=== PATIENT | female | born 1960 | race Caucasian/White ===

== ENCOUNTER 2017-09-09 14:33 | Emergency (ER) | payer OTHER ==
[~2017-09-09] VITALS: Ht 167.6 cm; Wt 65.9 kg
[2017-09-09 14:37] VITALS: BP 110/83
[2017-09-09] MEDS ORDERED: CORT1SOL3 AS (15:00)
[2017-09-09] MEDS ORDERED: IBUP-1022 PO (15:01)
== END 2017-09-09 15:24 | disposition home or self-care (01) ==
LOC: M ED 15:12
DX: H60.92 Unspecified otitis externa, left ear (principal); Z87.891 Personal history of nicotine dependence

== ENCOUNTER → 2017-10-18 | Outpatient (CLI) | payer OTHER ==
[~2017-10-18] MED LIST: CORT1SOL3 AS; IBUP-1022 PO
--- NOTE | 2017-10-28 08:36 | REPMRS ---
Patient History The patient states she has not had a clinical breast exam in over a year. Patient is postmenopausal and is nulliparous. No known family history of cancer. File area calling for out of town priors Digital Mammo Screening Bilat: October 18, 2017 - Exam #: [id number] Bilateral CC and MLO view(s) were taken. Technologist: Sylvie Welch, Technologist No prior studies available for comparison. FINDINGS: There are scattered fibroglandular densities. There is no evidence of dominant mass, architectural distortion, or clustered microcalcification typical of malignancy. ASSESSMENT: BI-RADS/ACR category 1 mammogram. Negative. Recommendation Routine screening mammogram of both breasts in 1 year (for women over age 40). This mammogram was interpreted with the aid of an FDA-approved computer-aided dectection system. Electronically Signed By: Maximo Christopher MD 10/28/17 0817
== END ==
LOC: M RAD 13:11
PROVIDERS: ATTEND Family Medicine Addiction Medicine
DX: Z12.31 Encounter for screening mammogram for malignant neoplasm of breast (principal)

== ENCOUNTER → 2017-11-01 | Outpatient (REF) | payer OTHER | LOC: M LAB REF 17:48 | PROVIDERS: ATTEND Family Medicine Addiction Medicine | DX: Z12.4 Encounter for screening for malignant neoplasm of cervix (principal) ==

== ENCOUNTER → 2017-11-04 | Outpatient (REF) | payer OTHER ==
[2017-11-04 15:42] LABS: ALBUMIN/GLOBULIN RATIO 1.08 (1.00-1.93); ALKALINE PHOSPHATASE 78 U/L (45-117); ALT/SGPT 23 U/L (12-78); ANION GAP 4 MEQ/L (8-16); AST/SGOT 19 U/L (7-37); BILIRUBIN,TOTAL 0.7 MG/DL (0.2-1.0); BLOOD UREA NITROGEN 15 MG/DL (7-18); CARBON DIOXIDE LEVEL 31 MEQ/L (21-32); CHLORIDE LEVEL 104 MEQ/L (98-107); CHOLESTEROL LEVEL 225 MG/DL (<200); CREATININE FOR GFR 0.72 MG/DL (0.55-1.02); GLOMERULAR FILTRATION RATE > 60.0 (>51); GLUCOSE, FASTING 97 MG/DL (70-105); POTASSIUM SERUM 4.4 MEQ/L (3.5-5.1); SODIUM LEVEL 139 MEQ/L (136-145); TOTAL PROTEIN 7.7 GM/DL (6.4-8.2); TRIGLYCERIDES LEVEL 80 MG/DL (<150)
== END ==
LOC: M LAB REF 15:02
PROVIDERS: ATTEND Family Medicine Addiction Medicine
DX: Z00.01 Encounter for general adult medical examination with abnormal findings (principal)

== ENCOUNTER → 2018-11-18 | Outpatient (CLI) | payer OTHER ==
--- NOTE | 2018-11-18 10:59 | REPMRS ---
Patient History The patient states she has not had a clinical breast exam in over a year. No known family history of cancer. Digital Mammo Screening Bilat: November 18, 2018 - Exam #: [id number] Bilateral CC and MLO view(s) were taken. Technologist: Zoila Hugo, Technologist Prior study comparison: October 18, 2017, bilateral digital mammo screening bilat performed at [facility]. July 29, 2014, bilateral digital woman screen mammo, performed at [facility]. October 04, 2011, bilateral digital woman screen mammo, performed at [facility]. FINDINGS: There are scattered fibroglandular densities. There has been no change in the appearance of the mammogram from the prior studies. There is a mild amount of scattered fibroglandular density which is fairly symmetric. There is no interval development of dominant mass, architectural distortion, or clustered microcalcification suggestive of malignancy. 3-D tomosynthesis shows no additional findings. Assessment: BI-RADS/ACR category 1 mammogram. Negative. Recommendation Routine screening mammogram of both breasts in 1 year (for women over age 40). This patient's Lifetime Breast Cancer RIsk is estimated at 11.3 %. This mammogram was interpreted with the aid of an FDA-approved computer-aided dectection system. Electronically Signed By: Maximo Christopher MD 11/18/18 1699
== END ==
LOC: M RAD 09:48
PROVIDERS: ATTEND Family Medicine Addiction Medicine
DX: Z12.31 Encounter for screening mammogram for malignant neoplasm of breast (principal)

== ENCOUNTER → 2019-05-20 | Outpatient (REF) | payer OTHER ==
[2019-05-20 13:53] LABS: ALBUMIN 3.8 GM/DL (3.2-5.2); ALT/SGPT 32 U/L (12-78); BILIRUBIN,TOTAL 0.4 MG/DL (0.2-1.0); BLOOD UREA NITROGEN 23 MG/DL (7-18); CALCIUM LEVEL 9.5 MG/DL (8.5-10.1); CARBON DIOXIDE LEVEL 29 MEQ/L (21-32); CHLORIDE LEVEL 107 MEQ/L (98-107); CHOLESTEROL LEVEL 225 MG/DL (<200); CREATININE FOR GFR 0.65 MG/DL (0.55-1.30); GLOMERULAR FILTRATION RATE > 60.0 (>51); GLUCOSE, FASTING 100 MG/DL (70-100); HDL CHOLESTEROL 69 MG/DL (>40); LDL CHOLESTEROL 130 MG/DL (<100); NON-HDL-C 156 MG/DL; POTASSIUM SERUM 4.5 MEQ/L (3.5-5.1); SODIUM LEVEL 141 MEQ/L (136-145); TOTAL PROTEIN 7.5 GM/DL (6.4-8.2); TRIGLYCERIDES LEVEL 130 MG/DL (<150)
== END ==
LOC: M LAB REF 13:01
PROVIDERS: ATTEND Family Medicine Addiction Medicine
DX: Z12.4 Encounter for screening for malignant neoplasm of cervix (principal)

== ENCOUNTER → 2019-09-29 | Outpatient (REF) | payer OTHER ==
[2019-09-29 14:10] LABS: ALBUMIN 3.7 GM/DL (3.2-5.2); ALT/SGPT 29 U/L (12-78); BILIRUBIN,TOTAL 0.5 MG/DL (0.2-1.0); BLOOD UREA NITROGEN 18 MG/DL (7-18); CALCIUM LEVEL 9.3 MG/DL (8.8-10.2); CARBON DIOXIDE LEVEL 30 MEQ/L (21-32); CHLORIDE LEVEL 108 MEQ/L (98-107); CHOLESTEROL LEVEL 222 MG/DL (<200); CHOLESTEROL RISK RATIO 2.846 (<5); CREATININE FOR GFR 0.72 MG/DL (0.55-1.30); GLOMERULAR FILTRATION RATE > 60.0 (>45); GLUCOSE, FASTING 106 MG/DL (70-100); HDL CHOLESTEROL 78 MG/DL (>40); LDL CHOLESTEROL 121 MG/DL (<100); NON-HDL-C 144 MG/DL; POTASSIUM SERUM 4.7 MEQ/L (3.5-5.1); SODIUM LEVEL 140 MEQ/L (136-145); TOTAL PROTEIN 7.2 GM/DL (6.4-8.2); TRIGLYCERIDES LEVEL 117 MG/DL (<150)
== END ==
LOC: M LAB REF 12:28
PROVIDERS: ATTEND Nurse Practitioner Family
DX: Z00.01 Encounter for general adult medical examination with abnormal findings (principal)

== ENCOUNTER → 2019-11-23 | Outpatient (CLI) | payer OTHER ==
--- NOTE | 2019-11-23 10:52 | REPMRS ---
Patient History The patient states she had a clinical breast exam in September 2019. No known family history of cancer. 3D TOMOSYNTHESIS WAS PERFORMED. The [facility] lifetime risk for breast cancer is 10.9%. Digital Mammo Screening Bilat: November 23, 2019 - Exam #: [id number] Bilateral CC and MLO view(s) were taken. Technologist: Sylvie Welch, Technologist Prior study comparison: November 18, 2018, bilateral digital mammo screening bilat performed at [facility]. October 18, 2017, bilateral digital mammo screening bilat performed at [facility]. FINDINGS: There are scattered fibroglandular densities. There has been no change in the appearance of the mammogram from the prior studies. There is a mild amount of residual fibroglandular tissue which is fairly symmetric. There is no interval development of dominant mass, architectural distortion, or clustered microcalcification suggestive of malignancy. Assessment: BI-RADS/ACR category 1 mammogram. Negative Mammogram. Recommendation Routine screening mammogram in 1 year (for women over age 40). This mammogram was interpreted with the aid of an FDA-approved computer-aided dectection system. Electronically Signed By: Abhijit Livingston MD 11/23/19 1762
== END ==
LOC: M RAD 10:08
PROVIDERS: ATTEND Nurse Practitioner Family
DX: Z12.31 Encounter for screening mammogram for malignant neoplasm of breast (principal)

== ENCOUNTER 2019-12-04 07:40 | Day surgery (SDC) | payer OTHER ==
[~2019-12-04] VITALS: Ht 167.6 cm; Wt 81.2 kg
[~2019-12-04 07:40] MED LIST changes: +LIDOCAINE 2% INJ 100 MG/5 ML SDV (FOR ANES.) As Ordered ONE; +MULTCAP PO; +NS 1,000 ML IV ONE; +PROPOFOL 200 MG/20 ML VIAL As Ordered ONE
[2019-12-04] MEDS ORDERED: PROPOFOL 200 MG/20 ML VIAL As Ordered ONE (09:29)
--- NOTE | 2019-12-04 09:37 | ROOR ---
Patient Name: Bharti Marsh Procedure Date: 12/04/2019 8:54 AM Date of : 1960 Age: 59 Room: [facility] Gender: Female Note Status: Finalized Procedure: Colonoscopy Indications: Screening for colorectal malignant neoplasm Providers: Cesar Bill MD Referring MD: Lenore Ro Requesting Provider: Medicines: Monitored Anesthesia Care Complications: No immediate complications. Procedure: Pre-Anesthesia Assessment: - Prior to the procedure, a History and Physical was performed, and patient medications and allergies were reviewed. The patient is competent. The risks and benefits of the procedure and the sedation options and risks were discussed with the patient. All questions were answered and informed consent was obtained. Patient identification and proposed procedure were verified by the physician, the nurse and the anesthesiologist in the procedure room. Mental Status Examination: alert and oriented. Airway Examination: normal oropharyngeal airway and neck mobility. Respiratory Examination: clear to auscultation. CV Examination: normal. Prophylactic Antibiotics: The patient does not require prophylactic antibiotics. Prior Anticoagulants: The patient has taken no previous anticoagulant or antiplatelet agents. ASA Grade Assessment: II - A patient with mild systemic disease. After reviewing the risks and benefits, the patient was deemed in satisfactory condition to undergo the procedure. The anesthesia plan was to use monitored anesthesia care (MAC). Immediately prior to administration of medications, the patient was re-assessed for adequacy to receive sedatives. The heart rate, respiratory rate, oxygen saturations, blood pressure, adequacy of pulmonary ventilation, and response to care were monitored throughout the procedure. The physical status of the patient was re-assessed after the procedure. The Colonoscope was introduced through the anus and advanced to the terminal ileum, with identification of the appendiceal orifice and IC valve. The colonoscopy was performed without difficulty. The patient tolerated the procedure well. The quality of the bowel preparation was good. The terminal ileum, ileocecal valve, appendiceal orifice, and rectum were photographed. Scope insertion time was 5 minutes. Scope withdrawal time was 11 minutes. The total duration of the procedure was 16 minutes. Findings: The perianal and digital rectal examinations were normal. The terminal ileum appeared normal. Three sessile polyps were found in the sigmoid colon and ascending colon. The polyps were 5 to 6 mm in size. These polyps were removed with a cold snare. Resection and retrieval were complete. Verification of patient identification for the specimen was done by the physician and nurse using the patient's name, date and medical record number. Estimated blood loss was minimal. Multiple small and large-mouthed diverticula were found from sigmoid to descending colon. There was no evidence of diverticular bleeding. Non-bleeding external and internal hemorrhoids were found during retroflexion. The hemorrhoids were medium-sized. Impression: - The examined portion of the ileum was normal. - Three 5 to 6 mm polyps in the sigmoid colon and in the ascending colon, removed with a cold snare. Resected and retrieved. - Moderate diverticulosis from sigmoid to descending colon. There was no evidence of diverticular bleeding. - Non-bleeding external and internal hemorrhoids. Recommendation: - Patient has a contact number available for emergencies. The signs and symptoms of potential delayed complications were discussed with the patient. Return to normal activities tomorrow. Written discharge instructions were provided to the patient. - High fiber diet. - Continue present medications. - Await pathology results. - Telephone GI clinic for pathology results in 2 weeks. - Repeat colonoscopy in 3 - 5 years for surveillance based on pathology results. - Return to primary care physician. Cesar Bill MD Cesar Bill MD 12/04/2019 9:37:32 AM Electronically signed by Cesar Bill MD Number of Addenda: 0 Note Initiated On: 12/04/2019 8:54 AM Estimated Blood Loss: Estimated blood loss was minimal.
[2019-12-04 09:57] VITALS: BP 176/98
== END 2019-12-04 09:59 | disposition home or self-care (01) ==
LOC: M OPP 07:40
PROVIDERS: ATTEND Internal Medicine Gastroenterology
DX: Z12.11 Encounter for screening for malignant neoplasm of colon (principal); K64.8 Other hemorrhoids; D12.5 Benign neoplasm of sigmoid colon; D12.2 Benign neoplasm of ascending colon; K57.30 Diverticulosis of large intestine without perforation or abscess without bleeding

== ENCOUNTER → 2020-11-30 | Outpatient (CLI) | payer OTHER ==
[~2020-11-30] MED LIST changes: -LIDOCAINE 2% INJ 100 MG/5 ML SDV (FOR ANES.) As Ordered ONE; -NS 1,000 ML IV ONE; -PROPOFOL 200 MG/20 ML VIAL As Ordered ONE
--- NOTE | 2020-11-30 14:58 | REPMRS ---
Patient History The patient states she has not had a clinical breast exam in over a year. Patient is postmenopausal and is nulliparous. No known family history of cancer. Digital Woman Screen Mammo: November 30, 2020 - Exam #: [id number] Bilateral MLO, CC, and XCCL view(s) were taken. Technologist: Rossy Shearer, Technologist Prior study comparison: November 23, 2019, bilateral digital mammo screening bilat, performed at [facility]. November 18, 2018, bilateral digital mammo screening bilat, performed at [facility]. October 18, 2017, bilateral digital mammo screening bilat, performed at [facility]. FINDINGS: There are scattered fibroglandular densities. The Volpara volumetric breast density category is:B. There has been no change in the appearance of the mammogram from the prior studies. There is a mild amount of scattered fibroglandular density which is fairly symmetric. There is no interval development of dominant mass, architectural distortion, or grouped microcalcification suggestive of malignancy. 3-D tomosynthesis shows no additional findings. Assessment: BI-RADS/ACR category 1 mammogram. Negative Mammogram. Recommendation Routine screening mammogram of both breasts in 1 year (for women over age 40). This patient's [facility] Lifetime Breast Cancer Risk is estimated at 10.6 %. This mammogram was interpreted with the aid of an FDA-approved computer-aided dectection system. Electronically Signed By: Maximo Christopher MD 11/30/20 1605
== END ==
LOC: M WHC 14:17
PROVIDERS: ATTEND Nurse Practitioner Family
DX: Z12.31 Encounter for screening mammogram for malignant neoplasm of breast (principal)

== ENCOUNTER → 2021-03-27 | Outpatient (REF) | payer OTHER ==
[2021-03-27 13:59] LABS: ALBUMIN 4.1 GM/DL (3.2-5.2); ALT/SGPT 37 U/L (12-78); BILIRUBIN,TOTAL 0.7 MG/DL (0.2-1.0); BLOOD UREA NITROGEN 15 MG/DL (7-18); CALCIUM LEVEL 9.2 MG/DL (8.8-10.2); CARBON DIOXIDE LEVEL 30 MEQ/L (21-32); CHLORIDE LEVEL 105 MEQ/L (98-107); CHOLESTEROL LEVEL 243 MG/DL (<200); CHOLESTEROL RISK RATIO 2.761 (<5); CREATININE FOR GFR 0.51 MG/DL (0.55-1.30); GLOMERULAR FILTRATION RATE > 60.0 (>45); GLUCOSE, FASTING 92 MG/DL (70-100); HDL CHOLESTEROL 88 MG/DL (>40); LDL CHOLESTEROL 135 MG/DL (<100); NON-HDL-C 155 MG/DL; POTASSIUM SERUM 4.9 MEQ/L (3.5-5.1); SODIUM LEVEL 140 MEQ/L (136-145); TOTAL PROTEIN 7.6 GM/DL (6.4-8.2); TRIGLYCERIDES LEVEL 98 MG/DL (<150)
== END ==
LOC: M LAB REF 12:04
PROVIDERS: ATTEND Family Medicine Addiction Medicine
DX: E78.5 Hyperlipidemia, unspecified (principal)

== ENCOUNTER → 2021-04-20 | Outpatient (REF) | payer OTHER ==
[~2021-04-20] MED LIST changes: +CEPH500C PO
== END ==
LOC: M LAB REF 17:07
PROVIDERS: ATTEND Orthopaedic Surgery
DX: M67.432 Ganglion, left wrist (principal)

== ENCOUNTER 2021-04-22 10:54 | Emergency (ER) | payer OTHER ==
[~2021-04-22] VITALS: Ht 167.6 cm; Wt 75.9 kg
[~2021-04-22 10:54] MED LIST changes: -CEPH500C PO
[2021-04-22] MEDS ORDERED: CEPH500C PO (12:35)
[2021-04-22 13:02] VITALS: BP 128/60
== END 2021-04-22 13:17 | disposition home or self-care (01) ==
LOC: M ED 10:54
DX: L76.34 Postprocedural seroma of skin and subcutaneous tissue following other procedure (principal)

== ENCOUNTER → 2022-08-12 | Outpatient (CLI) | payer OTHER ==
[~2022-08-12] MED LIST changes: +CEPH500C PO
== END ==
LOC: M LABSMTC 09:30
PROVIDERS: ATTEND Anesthesiology
DX: Z01.818 Encounter for other preprocedural examination (principal); Z11.52 Encounter for screening for COVID-19

== ENCOUNTER 2022-08-15 08:41 | Day surgery (SDC) | payer OTHER ==
[~2022-08-15] VITALS: Ht 167.6 cm; Wt 68.0 kg
[~2022-08-15 08:41] MED LIST changes: +ceFAZolin SOD 2 GM in IV 1 EA IV ONE
[2022-08-15] MEDS ORDERED: LIDOCAINE 2% 100MG/5ML SDV (FOR ANES.) As Ordered ONE (08:55)
[2022-08-15] MEDS ORDERED: propofoL 200 MG/20 ML VIAL As Ordered ONE (08:55)
[2022-08-15] MEDS ORDERED: fentaNYL 100 MCG/2 ML INJECTION As Ordered ONE (08:56)
[2022-08-15] MEDS ORDERED: MIDAZOLAM INJ 2MG/2ML VIAL (J2250 PER 1MG) As Ordered ONE (08:56)
[2022-08-15] MEDS ORDERED: oxyCODONE 5MG TAB PO PRN (09:15)
[2022-08-15] MEDS ORDERED: ONDANSETRON 4MG 2ML VIAL IV PRN (09:15)
[2022-08-15] MEDS ORDERED: fentaNYL 100 MCG/2 ML INJECTION IV PRN (09:15)
[2022-08-15] MEDS ORDERED: LR 1,000 ML IV SCH ×2 (09:15→09:30)
[2022-08-15] MEDS ORDERED: LIDOCAINE 1% SDV 30ML VIAL As Ordered ONE (09:37)
[2022-08-15] MEDS ORDERED: dexameTHASONE 4 MG/ML 1ML VIAL (J1100 PER 1MG) As Ordered ONE ×2 (09:37→10:06)
[2022-08-15] MEDS ORDERED: BUPIVACAINE HCL 0.5% 30ML VIAL As Ordered ONE (09:38)
[2022-08-15] MEDS ORDERED: ONDANSETRON 4MG 2ML VIAL As Ordered ONE (10:07)
[2022-08-15] MEDS ORDERED: ePHEDrine SULFATE 25 MG/5 ML(5MG/ML) SYRINGE As Ordered ONE (11:03)
[2022-08-15] MEDS ORDERED: ACETAMINOPHEN 1000MG 100ML IV BTL (OFIRMEV) (J0131 PER 10MG) As Ordered ONE (11:26)
[2022-08-15 13:45] VITALS: BP 136/90
== END 2022-08-15 13:50 | disposition home or self-care (01) ==
LOC: M SDC 08:41
PROVIDERS: ATTEND Podiatrist Foot & Ankle Surgery
DX: M20.12 Hallux valgus (acquired), left foot (principal); M20.42 Other hammer toe(s) (acquired), left foot; Z87.891 Personal history of nicotine dependence
CPT/HCPCS: 28234; 28285; 28299; 88300; 97116; C1713; J0131; J0690; J1100; J2250; J2405; J3010

== ENCOUNTER → 2023-12-30 | Outpatient (CLI) | payer OTHER ==
[~2023-12-30] MED LIST changes: -ceFAZolin SOD 2 GM in IV 1 EA IV ONE
[2023-12-30 17:32] LABS: ALBUMIN 3.8 G/DL (3.2-5.2); ALKALINE PHOSPHATASE 83 U/L (46-116); ALT/SGPT 24 U/L (7.0-40); AST/SGOT 26 U/L (<34); BLOOD UREA NITROGEN 11 MG/DL (9-23); CALCIUM LEVEL 9.3 MG/DL (8.3-10.6); CARBON DIOXIDE LEVEL 29 MMOL/L (20-31); CHLORIDE LEVEL 102 MMOL/L (98-107); CHOLESTEROL LEVEL 244 MG/DL (<200); CHOLESTEROL RISK RATIO 2.54 (<5); CREATININE FOR GFR 0.47 MG/DL (0.55-1.30); GLOMERULAR FILTRATION RATE > 60.0 (>45); GLUCOSE, FASTING 76 MG/DL (74-106); HDL CHOLESTEROL 95.7 MG/DL (>40); LDL CHOLESTEROL 136.1 MG/DL (<100); MAGNESIUM LEVEL 2.1 MG/DL (1.8-2.4); NON-HDL-C 148.3 MG/DL; POTASSIUM SERUM 4.2 MMOL/L (3.5-5.1); SODIUM LEVEL 138 MMOL/L (136-145); THYROID STIMULATING HORMONE 1.619 uIU/ML (0.55-4.78); TOTAL 25(OH) VITAMIN D 51.8 NG/ML (20.0-100.0); TOTAL PROTEIN 7.2 G/DL (5.7-8.2); TRIGLYCERIDES LEVEL 61 MG/DL (<150)
[2023-12-30 17:51] LABS: BASO % 0.7 % (0.0-1.0); EOS # 0.1 10^3/uL (0.0-0.5); HEMATOCRIT 41.2 % (36.0-47.0); HEMOGLOBIN 13.3 g/dl (12.0-15.5); LYMPH # 1.8 10^3/uL (1.5-5.0); MEAN CORPUSCULAR HEMOGLOBIN 32.7 pg (27.0-33.0); MEAN CORPUSCULAR HGB CONC 32.3 g/dl (32.0-36.5); MEAN CORPUSCULAR VOLUME 101.2 fl (80.0-96.0); MONO # 0.4 10^3/uL (0.0-0.8); MONO % 6.6 % (2.0-8.0); NEUTROPHILS # 3.7 10^3/uL (1.5-8.5); NEUTROPHILS % 60.5 % (36.0-66.0); PLATELET COUNT, AUTOMATED 369 10^3/uL (150-450); RED BLOOD COUNT 4.07 10^6/uL (4.00-5.40); WHITE BLOOD COUNT 6.1 10^3/uL (4.0-10.0)
[2023-12-30 19:09] LABS: HEMOGLOBIN A1c 5.2 % (4.0-6.0)
== END ==
LOC: M RAD 15:47
PROVIDERS: ATTEND Nurse Practitioner Family
DX: M25.561 Pain in right knee (principal); E66.3 Overweight; E55.9 Vitamin D deficiency, unspecified; M17.0 Bilateral primary osteoarthritis of knee

== ENCOUNTER 2024-03-04 10:04 | Day surgery (SDC) | payer OTHER ==
[~2024-03-04] VITALS: Ht 167.6 cm; Wt 76.1 kg
[~2024-03-04 10:04] MED LIST changes: +THERTAB52 PO; +VITA-243 PO
[2024-03-04] MEDS: NS 1,000 ML IV ONE (11:13)
[2024-03-04 11:14] VITALS: TEMP 97.8
[2024-03-04] MEDS ORDERED: propofoL 200 MG/20 ML VIAL As Ordered ONE (12:19)
[2024-03-04 13:00] VITALS: BP 125/79; O2SAT 96
== END 2024-03-04 13:27 | disposition home or self-care (01) ==
LOC: M OPP 10:04
PROVIDERS: ATTEND Surgery
DX: Z12.11 Encounter for screening for malignant neoplasm of colon (principal); Z86.010 Personal history of colon polyps; K57.30 Diverticulosis of large intestine without perforation or abscess without bleeding; Z87.891 Personal history of nicotine dependence

== ENCOUNTER → 2024-06-02 | Outpatient (CLI) | payer OTHER | LOC: M RAD 17:41 | PROVIDERS: ATTEND Nurse Practitioner Family | DX: M19.041 Primary osteoarthritis, right hand (principal) ==

== ENCOUNTER 2024-10-27 17:05 | Emergency (ER) | payer MEDICARE, OTHER ==
[~2024-10-27] VITALS: Ht 167.6 cm; Wt 79.0 kg
[2024-10-27 17:08] VITALS: TEMP 97.5
[2024-10-27] MEDS ORDERED: NAPR-837 PO (20:04)
[2024-10-27] MEDS: predniSONE 20 MG TAB PO ONE (20:18)
[2024-10-27 20:20] VITALS: BP 147/89; O2SAT 98
== END 2024-10-27 20:22 | disposition home or self-care (01) ==
LOC: M ED 17:05
DX: M54.32 Sciatica, left side (principal); Z79.899 Other long term (current) drug therapy
CPT/HCPCS: 99283; J7512

== ENCOUNTER → 2024-11-23 | Outpatient (CLI) | payer MEDICARE, OTHER ==
[~2024-11-23] MED LIST changes: +NAPR-837 PO
== END ==
LOC: M RAD 17:11
PROVIDERS: ATTEND Physician Assistant
DX: M53.3 Sacrococcygeal disorders, not elsewhere classified (principal); M47.9 Spondylosis, unspecified

== ENCOUNTER → 2024-12-31 | Outpatient (REF) | payer MEDICARE, OTHER ==
[2024-12-31 18:52] LABS: BASO # 0.1 10^3/uL (0.0-0.2); BASO % 0.9 % (0.0-1.0); EOS # 0.1 10^3/uL (0.0-0.5); EOS % 2.2 % (0.0-3.0); HEMATOCRIT 43.2 % (36.0-47.0); HEMOGLOBIN 13.9 g/dl (12.0-15.5); LYMPH # 1.5 10^3/uL (1.5-5.0); LYMPH % 27.4 % (24.0-44.0); MEAN CORPUSCULAR HEMOGLOBIN 32.9 pg (27.0-33.0); MEAN CORPUSCULAR HGB CONC 32.2 g/dl (32.0-36.5); MEAN CORPUSCULAR VOLUME 102.1 fl (80.0-96.0); MONO # 0.4 10^3/uL (0.0-0.8); MONO % 7.7 % (2.0-8.0); NEUTROPHILS # 3.4 10^3/uL (1.5-8.5); NEUTROPHILS % 61.6 % (36.0-66.0); PLATELET COUNT, AUTOMATED 395 10^3/uL (150-450); RED BLOOD COUNT 4.23 10^6/uL (4.00-5.40); WHITE BLOOD COUNT 5.6 10^3/uL (4.0-10.0)
[2024-12-31 19:05] LABS: ALKALINE PHOSPHATASE 90 U/L (35-104); ALT/SGPT 23 U/L (7.0-40); AST/SGOT 24 U/L (<34); BILIRUBIN,TOTAL 0.8 MG/DL (0.3-1.2); BLOOD UREA NITROGEN 12 MG/DL (9-23); CALCIUM LEVEL 9.8 MG/DL (8.3-10.6); CARBON DIOXIDE LEVEL 29 MMOL/L (20-31); CHLORIDE LEVEL 104 MMOL/L (98-107); CHOLESTEROL LEVEL 267 MG/DL (<200); CHOLESTEROL RISK RATIO 3.07 (<5); CREATININE FOR GFR 0.49 MG/DL (0.55-1.30); GLOMERULAR FILTRATION RATE > 60.0 (>45); GLUCOSE, FASTING 88 MG/DL (74-106); HDL CHOLESTEROL 86.9 MG/DL (>40); LDL CHOLESTEROL 150.9 MG/DL (<100); NON-HDL-C 180.1 MG/DL; POTASSIUM SERUM 4.2 MMOL/L (3.5-5.1); SODIUM LEVEL 140 MMOL/L (136-145); TOTAL PROTEIN 7.4 G/DL (5.7-8.2); TRIGLYCERIDES LEVEL 146 MG/DL (<150)
== END ==
LOC: M LAB REF 16:41
PROVIDERS: ATTEND Nurse Practitioner Family
DX: E66.3 Overweight (principal)

== ENCOUNTER → 2025-06-08 | Outpatient (REF) | payer MEDICARE, OTHER ==
[2025-06-08 14:43] LABS: CHOLESTEROL LEVEL 262.0 MG/DL (<200); CHOLESTEROL RISK RATIO 3.38 (<5); LDL CHOLESTEROL 151.8 MG/DL (<100); NON-HDL-C 184.6 MG/DL; TRIGLYCERIDES LEVEL 164.0 MG/DL (<150)
== END ==
LOC: M LAB REF 09:23
PROVIDERS: ATTEND Nurse Practitioner Family
DX: E78.5 Hyperlipidemia, unspecified (principal)

== ENCOUNTER → 2025-07-06 | Outpatient (CLI) | payer MEDICARE, OTHER, MEDICAID | LOC: M WHC 14:04 | PROVIDERS: ATTEND Physician Assistant | DX: Z13.820 Encounter for screening for osteoporosis (principal); Z78.0 Asymptomatic menopausal state ==